=== PATIENT | male | born 1960 | race Caucasian/White ===

== ENCOUNTER 2016-10-30 10:29 | Emergency (ER) | payer OTHER ==
[~2016-10-30] VITALS: Ht 177.8 cm; Wt 122.5 kg
[~2016-10-30 10:29] MED LIST: IBUP800T25 PO
[2016-10-30 10:35] VITALS: Ht 177.8 cm; Wt 122.5 kg
[2016-10-30] MEDS ORDERED: HYDR-906 PO (11:33)
--- NOTE | 2016-10-30 11:42 | ERA ---
ER Documentation Chief Complaint Date/Time DATE: 10/30/16 TIME: 11:38 Chief Complaint Complains of left leg pain HPI 55-year-old male with history of diabetes presents with a chief complaints of left knee pain 1 week. Patient has had similar knee pain approximately 1 month ago in the right knee that has resolved spontaneously. Patient denies trauma, fever, history of cancer, IV drug use, alcohol abuse, abdominal pain, recent illness, recent hospitalization, sexual activity. Patient has no other complaints and describes no other associated manifestations. Nursing notes have been reviewed and are consistent with history given. ROS All systems reviewed and are negative except as per history of present illness. Medications Home Meds Active Scripts Hydrocodone/Acetaminophen ([place] 5-325 Tablet) 1 Each Tablet, 1 TAB PO Q6H Y for PAIN, #7 TAB Prov:MATHEW GARZA PA-C 10/30/16 Ibuprofen* (Motrin*) 800 Mg Tab, 800 MG PO Q8 Y for PAIN AND OR ELEVATED TEMP, # 30 TAB Prov:SEVERIANO DELGADILLO NP 12/04/15 PMhx/Soc History of Surgery: No Anesthesia Reaction: No Hx Neurological Disorder: No Hx Respiratory Disorders: No Hx Cardiac Disorders: No Hx Psychiatric Problems: No Hx Miscellaneous Medical Probl: No Hx Alcohol Use: No Hx Substance Use: No Hx Tobacco Use: No Physical Exam Vitals Vital Signs Date Time Temp Pulse Resp B/P Pulse Ox O2 Delivery O2 Flow Rate FiO2 10/30/16 10:35 97.8 83 20 180/86 95 Physical Exam Const: Overweight 55-year-old male in no acute distress Head: Atraumatic Eyes: Normal Conjunctiva ENT: Normal External Ears, Nose and Mouth. Neck: Full range of motion..~ No meningismus. Resp: Clear to auscultation bilaterally Cardio: Regular rate and rhythm, no murmurs. Posterior tibial and dorsalis pedis pulses 2+ bilaterally. Abd: Soft, non tender, non distended. Normal bowel sounds Skin: Mild to moderate white calluses on knees bilaterally. No petechiae or rashes Back: No midline or flank tenderness Ext: Negative Bhargav's test, Holland's tests, Lockman sign,. No ligament laxity. No cyanosis, or edema. No TTP Neur: Awake and alert Psych: Normal Mood and Affect Procedures/MDM 55-year-old male presents with a chief complaint of left knee pain as described in the history and physical examination. No history of trauma. No tenderness to palpation. Has not taken any medications to relieve the symptoms. Patient works as a painter assistant. No signs of bursitis. At this time of little suspicion for bony pathology or neurovascular compromise. No red flags to suggest imaging modalities. Most likely diagnosis is knee pain due to unknown origin. I have spoke with the patient regarding their condition and future management including following up with PCP. A list of clinics has been given to the patient. They have verbally responded that they understand their status and treatment plan. The patients vitals are stable, and their current condition is appropriate for discharge. The patient will be given discharge instructions with return precautions. Discharge medications: [place] 5/25 every 6 hours as needed for pain Departure Diagnosis: Primary Impression: Pain of left leg Condition: Stable Patient Instructions: Knee Pain, Uncertain Cause Referrals: [facility].C. (PCP) [facility] YOU HAVE RECEIVED A MEDICAL SCREENING EXAM AND THE RESULTS INDICATE THAT YOU DO NOT HAVE A CONDITION THAT REQUIRES URGENT TREATMENT IN THE EMERGENCY DEPARTMENT. FURTHER EVALUATION AND TREATMENT OF YOUR CONDITION CAN WAIT UNTIL YOU ARE SEEN IN YOUR DOCTORS OFFICE WITHIN THE NEXT 1-2 DAYS. IT IS YOUR RESPONSIBILITY TO MAKE AN APPOINTMENT FOR FOLOW-UP CARE. IF YOU HAVE A PRIMARY DOCTOR --you should call your primary doctor and schedule an appointment IF YOU DO NOT HAVE A PRIMARY DOCTOR YOU CAN CALL OUR PHYSICIAN REFERRAL HOTLINE AT IF YOU CAN NOT AFFORD TO SEE A PHYSICIAN YOU CAN CHOSE FROM THE FOLLOWING THE [facility] CLINICS [facility] [address] [facility]. [facility] [address] [facility]. [facility] [address] [facility]. [facility] [address] [facility]. [facility] [address] [facility]. [facility]. [address] [facility] ([place]) Usted se gibson hecho un examen mdico de control que le indica que no est en rika condicin que requiera tratamiento urgente en el Departamento de Emergencia. Un estudio ms profundo y el tratamiento de saldivar condicin pueden esperar sin ningn riesgo hasta que usted sea atendida/o en el consultorio de saldivar mdico o rika cl tan. Es responsabilidad suya arreglar rika mary para el seguimiento del daniel. MANEJO DE CONDICIONES NO URGENTES EN EL FUTURO 1) Si usted tiene un mdico de atencin primaria: Usted debera llamar a saldivar mdico de atencin primaria antes de venir al departamento de emergencia. Despus de las horas de consultorio, saldivar doctor o saldivar asociado/a est disponible por telfono. El mdico o enfermero de jin en el servicio telefnico puede asesorarle por rene medio para atender el problema, o daniel contrario se puede programar rika mary. 2) Si usted no tiene un mdico de atencin primaria: Llame al mdico o clnica de referencia que aparece abajo tony las horas de consultorio para hacer rika mary para que le vean. CLINICAS: [facility] [phone] [address] [facility]., [facility] [phone] [address] [facility] [facility] [phone] [address] [facility]. [facility] [phone] [address] [facility]. [place] [id number] [phone] [facility]. [phone] [address] Additional Instructions: Follow up with your PCP within the next 1-3 days for a more thorough evaluation and a possible referral to a specialist. Return the the emergency department immediately if symptoms worsen or change. If you have any questions regarding medications, ask your pharmacist or us before you leave. If any adverse reactions occur while taking your medications, discontinue the treatment and return to the emergency department immediately. Take your medications as directed, and complete the entire course of treatment. MATHEW GARZA PA-C Oct 30, 2016 11:42
== END 2016-10-30 11:46 | disposition home or self-care (01) ==
LOC: FTE 10:29
DX: M25.562 Pain in left knee (principal)
CPT/HCPCS: 99283

== ENCOUNTER 2018-10-30 17:55 | Emergency (ER) | payer OTHER ==
[~2018-10-30] VITALS: Wt 90.0 kg
[~2018-10-30 17:55] MED LIST changes: +HYDR-4011 PO; -IBUP800T25 PO; +IBUP800T48 PO; +INSU100V3 SQ; +NPH,100V SQ
[2018-10-30] MEDS ORDERED: SOD CHLORIDE 0.9% 1,000 ML IV STA (20:25)
[2018-10-30] MEDS ORDERED: INSULIN REGULAR, HUMAN 100 UNIT/1 ML 3ML VIAL SC ONE (20:30)
[2018-10-30] MEDS ORDERED: NPH, HUMAN INSULIN ISOPHANE 3ML VIAL SC ONE (20:30)
[2018-10-30] MEDS ORDERED: LACTATED RINGER'S 1,000 ML IV STA (20:48)
[2018-10-30 22:08] VITALS: BP 189/108; PULSE 88; RESP 16
== END 2018-10-30 22:09 | disposition home or self-care (01) ==
LOC: E/R 17:55
DX: E11.65 Type 2 diabetes mellitus with hyperglycemia (principal); I10 Essential (primary) hypertension; Z79.4 Long term (current) use of insulin
CPT/HCPCS: 36415; 80048; 81001; 82803; 82962; 85025; 96372; J1815; J7030; J7120; Z7502